=== PATIENT | male | born 1935 | race Caucasian/White ===

== ENCOUNTER 2017-01-31 16:18 | Inpatient (IN) ==
[2017-01-31] MEDS ORDERED: Ipratropium/Albuterol Neb 3 ML IH PRN (16:37)
[2017-01-31] MEDS ORDERED: Sennosides/Docusate Sodium TABLET PO SCH (21:00)
[2017-01-31] MEDS ORDERED: Insulin DETEMIR 100 UNIT/ML per UNIT SQ ONE (21:00)
[2017-01-31] MEDS ORDERED: NON-FORMULARY MEDICATION 1 EACH EACH (Insulin Glargine [Lantus] 15 UNIT) SQ SCH (21:00)
[2017-02-01 01:33] LABS: INR 0.9; Prothrombin Time 9.8 Seconds (9.4-12.1)
[2017-02-01 01:35] LABS: Activated Partial Thrombo Time 29.8 Seconds (26.0-36.0)
[2017-02-01 01:41] LABS: Calcium 7.9 mg/dL (8.6-10.8); Potassium 4.1 mEq/L (3.5-4.5)
[2017-02-01 02:38] LABS: Basophils % 0.2 %; Eosinophils # 0.1 K/mcL (0.0-0.6); Eosinophils % 1.4 %; Hematocrit 24.5 % (37.5-50.1); Hemoglobin 7.6 g/dL (12.9-16.9); Immature Granulocytes % 0.5 % (0-4); Lymphocytes # 0.3 K/mcL (0.6-4.6); Mean Corpuscular Hemoglobin 31.8 pg (28.0-33.3); Mean Corpuscular Volume 102.5 fL (83.0-100.0); Mean Platelet Volume 12.2 fL (9.4-12.4); Monocytes # 0.7 K/mcL (0.0-1.3); Monocytes % 10.5 %; Neutrophils # 5.5 K/mcL (1.6-8.9); Platelet Count 149 K/mcL (140-400); Red Blood Count 2.39 M/mcL (4.19-5.50); Red Cell Distribution Width 22.7 % (11.5-14.5); Segmented Neutrophils % 82.4 %
[2017-02-01 02:41] LABS: Anisocytosis 2+ (Not Present); Basophilic Stippling 1+ (Not Present)
[2017-02-01 02:42] LABS: Macrocytosis Present (Not Present); Platelet Estimate Normal (Normal)
--- NOTE | 2017-02-01 03:02 | Internal Med History&Physical ---
Date of Encounter: 02/01/17 Time of Encounter: 02:44 Assessment and Plan (1) Anemia Current visit: No Status: Acute Had Ulcer on EGD at [facility] received 3 units . HIs H/H as communicated from [facility] was 9.2 however its 7.6 done tonight . In the presence of cardiac disease he will require blood transfusion with caution and with IV Lasix Will type and cross match Qualifiers: Anemia type: unspecified type Qualified Code(s): D64.9 - Anemia, unspecified (2) GI (gastrointestinal bleed) Current visit: Yes Status: Acute Qualifiers: GI bleed type/associated pathology: gastric ulcer Qualified Code(s): K25.4 - Chronic or unspecified gastric ulcer with hemorrhage (3) Renal insufficiency Current visit: Yes Status: Acute His baseline per [facility] is 1.8 which has increased to 2.19 . Most likely multifactorail and is third spacing due to heart failure and swelling Insert Reinoso and Give Lasix and followup . (4) Acute exacerbation of CHF (congestive heart failure) Current visit: No Status: Acute Hx of CAD and cardiamyopathy . pt is in [place] swollen all areas including swollen testicles . CHX potable no comparison available shows pleural fluids and edema consistent with CHF . His pulse is 95 % on 2 liters of Nasal oxygen . His blood pressure is systolic 90 at the present time . Pt is prompted up in bed which mad his breathing much better .. Insert IV access, Will give IV lasix as needed. if his blood pressure tolerates it . I have called [facility] and it seems that the option will be to send him to the ED however I am told that an accepting physician should be available before pt could be sent to [place]. Since pt feels better after prompting him upwards , will continue to watch and give Lasix as tolerated. His Troponin done is high however better then his [facility] levels.Insert catheter and monitor weight output. pt is a full code. if needed we can transfer him to [facility] for aggressive medical treatment in the morning or try to communicate with the provider who had admitted him in [facility] in the morning. Qualifiers: Congestive heart failure type: systolic Qualified Code(s): I50.23 - Acute on chronic systolic (congestive) heart failure (5) Type 2 diabetes mellitus Current visit: No Status: Chronic Continue present medication Qualifiers: Diabetes mellitus complication status: with kidney complications Diabetes mellitus complication detail: with chronic kidney disease Diabetes mellitus rat exterminator insulin use: with rat exterminator use Chronic kidney disease stage: stage 3 (moderate) Qualified Code(s): E11.22 - Type 2 diabetes mellitus with diabetic chronic kidney disease; N18.3 - Chronic kidney disease, stage 3 ( moderate); Z79.4 - rat exterminator (current) use of insulin (6) Atrial fibrillation Current visit: No Status: Chronic stable at the present time On paceaker and defibrillator Qualifiers: Atrial fibrillation type: chronic Qualified Code(s): I48.2 - Chronic atrial fibrillation (7) HTN (hypertension) Current visit: No Status: Chronic Some what low systolic . Will continue to monitor his blood pressures d/c Hytrin as its low and is unable to give Lasix with low blood pressure Swithc to Flomax for his BPH Qualifiers: Hypertension type: essential hypertension Qualified Code(s): I10 - Essential (primary) hypertension (8) Hx of CABG Current visit: No Status: Resolved stable had chest pain , Troponin are getting better Internal Medicine - H&P: HPI Chief complaint: SOB and deconditioning Admitted From: Hospital to Hospital Transfer History of present illness: Mr. Vela is a 81 year old male who was transferred yesterday evening from [facility] where he was admitted s/p ERCP/ At the present time I don have records records or reason for ERCP .After his procedure ,pt apprently became SOB and had pulmuary edema and was intubated. He has hx of HTN IDDM , CHF with EF of 30% and defibrillator . Apprently he also had 2 GI ulcers and received 3 units of PRBC Today I was called around midnight with pt complaining of chest pain and SOB . Pain was on left side.no radiating and relieved after a short time . His EKG showed paced rhythm , Troponin mildly high but better then what he had was better then what he had at [facility] .(0.52-0.56-0.153) This information is from nursing staff as I don't have nay records available at the present time . He is pain free complains of some back pain . he also complained of complained of SOB mild originally but feeling to to be base line at the present time . No nausea vomiting or diarrhea . Otherwise no other issues or complains by patient. No fever or chills Past Med Surg Social Fam HX - Past Medical History Medical history: atrial fibrillation, cardiomyopathy, CHF, COPD, coronary artery disease, diabetes, GI bleed (bleeding ulcers recently ), hyperlipidemia, hypertension Psychiatric history: no psych history - Past Surgical History Surgical History: coronary bypass (CABG), pacemaker/AICD - Social History Smoking Status: Never smoker Smokeless Tobacco Status: Yes Alcohol use: none Drug use: none - Family History Mother Living Status: Hx Family Cardiac Disorders: Yes Father Living Status: Hx Family Cardiac Disorders: Yes Hx Family Respiratory Disorders: No Hx Family Cancer: No Hx Family GI Disorders: No Hx Family Endocrine Disorder: No Hx Family Neuromuscular Disorders: No Hx Family Neurologic Disorders: No Hx Family HEENT Disorders: No Hx Family Autoimmune Disorders: No Internal Medicine - H&P: Meds Aspirin Enteric Coated [Aspirin EC] 81 mg PO DAILY 04/17/15 [History] Atorvastatin Calcium [Lipitor] 80 mg PO HS 04/17/15 [History] Insulin Glargine [Lantus] 15 unit SQ HS 04/17/15 [History] Levothyroxine [Synthroid] 100 mcg PO QAM 04/17/15 [History] Terazosin [Hytrin] 10 mg PO HS 04/17/15 [History] Ferrous Sulfate 325 mg PO DAILY 01/10/17 [History] Furosemide [Lasix] 40 mg PO DAILY 01/10/17 [History] Lisinopril [Zestril] 5 mg PO DAILY 01/10/17 [History] 3 Allergy/AdvReac Type Severity Reaction Status Date / Time Penicillins Allergy See Verified 01/10/17 15:43 Comments All Systems PM: A 10-system review of systems was performed and is negative for pertinent findings except as documented above in the HPI. - Constitutional Constitutional: anorexia, fatigue, lethargy, no falls - EENT Eyes: loss of vision, photophobia Ears: no ear discharge, no ear pain Nose, mouth and throat: no dysphagia, no nasal congestion, no sinus pain - Cardiovascular Cardiovascular ROS IM: chest pain, dyspnea, dyspnea on exertion, edema, lightheadedness, orthopnea, paroxysmal nocturnal dyspnea Additional comments: chest pain improved now lasted only for short while less then 15 minutes mild in nature - Respiratory Respiratory: dyspnea, dyspnea on exertion, no hemoptysis, no wheezing, no chest congestion - Gastrointestinal Gastrointestinal: constipation, no abdominal pain, no coffee ground emesis, no diarrhea, no dyspepsia, no dysphagia, no heartburn, no hematemesis, no vomiting - Genitourinary Genitourinary ROS male: scrotal swelling, urinary frequency, urinary hesitancy, no penile discharge - Neurological Neurological ROS: memory loss, no abnormal hearing, no abnormal movements, no abnormal speech, no dizziness, no focal weakness, no vertigo Additional comments: he is oriented to self only however seems to answers appropriately about where he lives and what did he do for living - Psychiatric Psychiatric: no hallucinations, no homicidal ideation, no suicidal ideation - Constitutional Vitals: Temp Pulse Resp BP Pulse Ox 97.7 F 74 22 92/42 91 02/01/17 00:11 02/01/17 01:30 02/01/17 01:30 02/01/17 01:30 02/01/17 01:30 General appearance: Present: mild distress, A&O X 3, morbidly obese - Head Head exam: Present: atraumatic - Eye Eye exam: Present: EOMI, PERRL. Absent: periorbital swelling, scleral icterus, sclera anicteric Pupils: Present: PERRL - Neck Neck exam general surgery: Absent: tenderness, nuchal rigidity Additional comments: thick neck unable to appreciate any JVD or hepatojuglar reflex - Respiratory Respiratory exam: Present: rales, rhonchi. Absent: chest wall tenderness, decreased breath sounds, respiratory distress, wheezes, tachypnea Additional comments: all lng foy decrease air entry in the bases especially on his back . Anteriorly cleared after cough - Cardiovascular Cardiovascular exam: Present: RRR Additional comments: distant heart sounds . pacemaker rhythm occasional PVC couldn't appreciate any murmurs - GI/Abdominal GI/Abdominal exam: Present: distended, normal bowel sounds, soft. Absent: guarding, tenderness - Extremities Exam Extremities exam: Present: pedal edema. Absent: tenderness Additional comments: edema +++ both legs , and arms - Neurological Exam Neurological exam: Present: CN II-XII intact, strengths equal and symetr throughout. Absent: no focal deficits, facial droop, speech deficit Additional comments: he is oriented to self only Internal Med - H&P Results - Labs CBC & Chem 7: 02/01/17 01:20 02/01/17 01:20 Labs: Short CBC 02/01/17 Range/Units 01:20 WBC 6.7 (4.3-11.1) K/mcL Hgb 7.6 L (12.9-16.9) g/dL Hct 24.5 L (37.5-50.1) % Plt Count 149 (140-400) K/mcL Neutrophils # 5.5 (1.6-8.9) K/mcL BMP 02/01/17 01:20 Sodium 144 Potassium 4.1 Chloride 116 H Carbon Dioxide 22 BUN 29 H Creatinine 2.19 H Glucose 143 H Calcium 7.9 L Cardiac Enzymes 02/01/17 Range/Units 01:20 Troponin I 0.09 H* (0-0.03) ng/mL - Impressions ITS Impressions Chest X-Ray 02/01/17 00:42 IMPRESSION: Findings suggest congestive heart failure. D/ / Andres Rashid MD / Andres Rashid MD Interpreting Provider: Andres Rashid MD - VTE Documentation of Mechanical Device: Graduated compression elastic hosiery
[2017-02-01 03:27] VITALS: BP 92/58
--- NOTE | 2017-02-01 03:49 | Discharge Summary ---
Date of Encounter: 02/01/17 Time of Encounter: 03:47 - Discharge Diagnosis (1) Anemia Priority: Secondary Status: Acute Comments: Had GI bleed EGD done in [place] shows two ulcers , I am not sure it its in Duodenal or gastric as report is not available . He will need blood transfusion due to his cardiac issues and heart failure. There is drop in his h/h again making me believe that he is bleeding again. Qualifiers: Anemia type: unspecified type Qualified Code(s): D64.9 - Anemia, unspecified (2) GI (gastrointestinal bleed) Priority: Secondary Status: Acute Comments: Site of bleed is upper GI ,EGD was done report not available received 3 units in [place] , H/H has dropped again and needed more transfusion due to his CHF. He might be bleeding again and will require another EGD to assess along with blood. He is not complaining of any epigastrium pain at the present time He is complaining of pain in his back now on examination local pain at lumbar area no bruises or any other abnormality noted Qualifiers: GI bleed type/associated pathology: gastric ulcer Qualified Code(s): K25.4 - Chronic or unspecified gastric ulcer with hemorrhage (3) Renal insufficiency Priority: Secondary Status: Acute Comments: creatinine increased from 1.8 to 2.1 Reinoso inserted Most likely multifactorial . He is third spacing as has considerable edema all over his body (4) Acute exacerbation of CHF (congestive heart failure) Priority: Primary Status: Acute Comments: CHF EF30 % blood pressure is some what low making it difficult to manage with IV Lasix . at the present time treating him conservatively Pulse ox 95% maintaining to on 2liters .I isidra also stopped switched him to flomax , Lasix IV as needed and as tolerated . He will get blood transfusion with Lasix coverage . This could help his CHF as well . He needs to be in an acute setting and possible get his transfusion at a higher level . Qualifiers: Congestive heart failure type: systolic Qualified Code(s): I50.23 - Acute on chronic systolic (congestive) heart failure (5) Type 2 diabetes mellitus Priority: Secondary Status: Chronic Qualifiers: Diabetes mellitus complication status: with kidney complications Diabetes mellitus complication detail: with chronic kidney disease Diabetes mellitus senior living insulin use: with senior living use Chronic kidney disease stage: stage 3 (moderate) Qualified Code(s): E11.22 - Type 2 diabetes mellitus with diabetic chronic kidney disease; N18.3 - Chronic kidney disease, stage 3 ( moderate); Z79.4 - termite exterminator helper (current) use of insulin (6) Atrial fibrillation Priority: Secondary Status: Chronic Comments: on pacemaker stable rate Qualifiers: Atrial fibrillation type: chronic Qualified Code(s): I48.2 - Chronic atrial fibrillation (7) HTN (hypertension) Priority: Secondary Status: Chronic Qualifiers: Hypertension type: essential hypertension Qualified Code(s): I10 - Essential (primary) hypertension (8) Hx of CABG Priority: Secondary Status: Resolved - Discharge Medications Home Medications: Aspirin Enteric Coated [Aspirin EC] 81 mg PO DAILY 04/17/15 [History] Atorvastatin Calcium [Lipitor] 80 mg PO HS 04/17/15 [History] Insulin Glargine [Lantus] 15 unit SQ HS 04/17/15 [History] Levothyroxine [Synthroid] 100 mcg PO QAM 04/17/15 [History] Terazosin [Hytrin] 10 mg PO HS 04/17/15 [History] Ferrous Sulfate 325 mg PO DAILY 01/10/17 [History] Furosemide [Lasix] 40 mg PO DAILY 01/10/17 [History] Lisinopril [Zestril] 5 mg PO DAILY 01/10/17 [History] Allergies/Adverse Reactions: 3 Allergy/AdvReac Type Severity Reaction Status Date / Time Penicillins Allergy See Verified 01/10/17 15:43 Comments Procedures/tests Complete & Pending: Procedures Performed prior 72 hours Category Date Time Status EKG [ECG 12 lead ECG] [ECG] Stat Y 02/01/17 02:25 Ordered Date of admission: 01/31/17 16:23 Primary care physician: [facility] Consults: 01/31/17 16:41 Consult to Occupational Therapy [CONS] Routine Comment: deconditioning Reason for Consult: eval/treat Consult to Physical Therapy [CONS] Routine Comment: deconditioning Reason for Consult: eval/treat Consult to Recreational Therapy [CONS] Routine Comment: Discharging clinician: Zafar Iglesias - Patient Status Disposition: Transfer Other Condition: Serious Overall status at discharge: patient is not back to baseline - Discharge Instructions Follow Up With: [facility],PCP [Primary Care Provider] - - Diet and Activity Diet: diabetic diet Hospital course: Mr. Vela is a 81 year old male who was admitted from [place] last evening developed increase in SOB and was noted to be in CHF exacerbation . he aslo complained of chest pain His troponin was slightly high but better then his last labs . His h/h dropped from 9.1 to 7.6 no active bleed at the present time . he is complaining of lower back pain as well however no bruises noted . Abdomen is soft not distended . No epigastric pain at the present time . He has defibrillator . Reinoso was inserted with 200 cc urine . his creatinine has worsend as well from 1.8 to 2.1 Pt is being transferred to [place] ED. Discussed with son Rashel Vela and he agrees . Condition is guarded . - Time Spent with Patient Total time spent providing and/or coordinating discharge services: - Constitutional Vitals: Temp Pulse Resp BP Pulse Ox 97.7 F 74 22 92/58 91 02/01/17 00:11 02/01/17 01:30 02/01/17 01:30 02/01/17 03:26 02/01/17 01:30 General appearance: Present: mild distress, A&O X 3, morbidly obese - VTE Documentation of Mechanical Device: Graduated compression elastic hosiery
[2017-02-01] MEDS ORDERED: *HR* OxyCODONE Immed Rel 5 MG TABLET PO ONE ×2 (04:25→04:45)
[2017-02-01] MEDS ORDERED: Furosemide 40 MG TABLET PO SCH (09:00)
[2017-02-01] MEDS ORDERED: Aspirin Enteric Coated 81 MG Tablet PO SCH (09:00)
[2017-02-01] MEDS ORDERED: Insulin DETEMIR 100 UNIT/ML X5UNITS SQ SCH (21:00)
--- NOTE | 2017-02-04 08:16 | Electrocardiograph Report ---
[place] [id number] Test Date: 2017-02-01 Pat Name: Cornel Vela Department: 2001 Room: 116 Gender: M Sales Project Engineer: [facility] : 1935 Requested By: Mohsen Iglesias Order Number: [id number] Reading MD: Ita Manzano Measurements Intervals [place] Rate: 82 P: SD: 0 QRS: 225 QRSD: 146 T: 28 QT: 446 QTc: 484 Interpretive Statements ELECTRONIC VENTRICULAR PACEMAKER ABNORMAL RHYTHM ECG Electronically Signed On 02-03-2017 11:08:47 EDT by Ita Manzano
== END 2017-02-01 04:50 | disposition short-term general hospital (02) | DRG 555 ==
LOC: INPGRE 16:23
PROVIDERS: ADMIT Internal Medicine; ATTEND Internal Medicine